=== PATIENT | male | born 1945 | race Caucasian/White ===

== ENCOUNTER 2016-11-19 12:24 | Emergency (ER) | payer OTHER ==
[~2016-11-19] VITALS: Ht 177.8 cm; Wt 86.2 kg
[2016-11-19 13:38] LABS: Basophils # (auto) 0 uL; Basophils % (auto) 0.3 % (0.0-2.0); CONDITION Y; Eosinophils # (auto) 0.1 uL; Eosinophils % (auto) 1.1 % (0.0-7.0); Hemoglobin 15.6 g/dL (13.5-17.5); Lymphocytes # (auto) 0.9 uL; Lymphocytes % (auto) 7.8 % (10.0-50.0); Mean Corpuscular Hemoglobin 28.9 pg (28.0-32.0); Mean Corpuscular Hgb Conc. 33.8 g/dL (32.0-36.0); Mean Corpuscular Volume 85.3 fL (80.0-100.0); Mean Platelet Volume 8.3 fL (6.9-10.8); Monocytes # (auto) 0.6 uL; Monocytes % (auto) 5.5 % (0.0-12.0); Neutrophils # (auto) 10.1 uL; Neutrophils % (auto) 85.3 % (37.0-80.0); Platelet Count (auto) 291 10^3/uL (140-450); Red Cell Distribution Width 14.8 % (11.8-14.3); White Blood Cell 11.8 10^3/uL (4.4-10.8)
[2016-11-19] MEDS ORDERED: HYDROcodone-ACET 10/325MG TAB PO ONE (14:15)
[2016-11-19 14:18] LABS: Alkaline Phosphatase 80 U/L (45-117); Anion Gap 10 (5-15); Aspartate Aminotransferase 29 U/L (15-37); BUN/Creatinine Ratio 14.9; Bilirubin, Total 0.3 mg/dL (0.2-1.0); Blood Urea Nitrogen 18 mg/dL (7-18); Calcium 9.1 mg/dL (8.5-10.1); Carbon Dioxide 24 mmol/L (21-32); Chloride 104 mmol/L (98-107); GFR African American 76 mL/min; GFR Non-African American 63 mL/min; Glucose 120 mg/dL (74-106); Potassium 3.5 mmol/L (3.5-5.1); Sodium 138 mmol/L (136-145)
[2016-11-19] MEDS ORDERED: TETANUS-DIPTH-ACEL PERTUSSIS 0.5ML SYRG IM ONE (17:00)
[2016-11-20] MEDS ORDERED: ONDANSETRON HCL 4 MG/2 ML VIAL IV ONE (00:15)
[2016-11-20] MEDS ORDERED: HYDROmorphone HCL 2 MG/ML VL IV ONE (00:15)
[2016-11-20 03:52] VITALS: BP 181/88
== END 2016-11-20 04:35 | disposition short-term general hospital (02) ==
LOC: EDBD 12:24 → ER 12:35
DX: S22.20XA Unspecified fracture of sternum, initial encounter for closed fracture (principal); S60.221A Contusion of right hand, initial encounter; S13.9XXA Sprain of joints and ligaments of unspecified parts of neck, initial encounter; S22.43XA Multiple fractures of ribs, bilateral, initial encounter for closed fracture; I10 Essential (primary) hypertension; M19.90 Unspecified osteoarthritis, unspecified site; V49.49XA Driver injured in collision with other motor vehicles in traffic accident, initial encounter; Y93.89 Activity, other specified; Y99.8 Other external cause status; Y92.410 Unspecified street and highway as the place of occurrence of the external cause
CPT/HCPCS: 36415; 71020; 71250; 72040; 72125; 73110; 80053; 84484; 85025; 90471; 90715; 93005; 96374; 96375; 99291; J1170; J2405

== ENCOUNTER → 2020-07-17 | Outpatient (CLI) | payer MEDICARE, OTHER | END | disposition home or self-care (01) | LOC: Rad HDHVI 08:00 | PROVIDERS: ATTEND Internal Medicine Cardiovascular Disease | DX: I65.21 Occlusion and stenosis of right carotid artery (principal); R07.89 Other chest pain | CPT/HCPCS: 93880 ==

== ENCOUNTER → 2020-07-21 | Outpatient (CLI) | payer MEDICARE, OTHER | END | disposition home or self-care (01) | LOC: Rad HDHVI 07:57 | PROVIDERS: ATTEND Internal Medicine Cardiovascular Disease | DX: R07.89 Other chest pain (principal) | CPT/HCPCS: 93306 ==

== ENCOUNTER → 2020-08-04 | Outpatient (CLI) | payer MEDICARE, OTHER ==
[~2020-08-04] VITALS: Ht 177.8 cm; Wt 93.0 kg
== END | disposition home or self-care (01) ==
LOC: Rad HDHVI 08:56
PROVIDERS: ATTEND Internal Medicine Cardiovascular Disease
DX: I10 Essential (primary) hypertension (principal); E78.5 Hyperlipidemia, unspecified; R06.02 Shortness of breath; R07.89 Other chest pain; Z82.49 Family history of ischemic heart disease and other diseases of the circulatory system
CPT/HCPCS: 78452; 93017; 96374; A9500

== ENCOUNTER → 2022-01-12 | Outpatient (CLI) | payer MEDICARE, OTHER | END | disposition home or self-care (01) | LOC: Rad HDHVI 08:03 | PROVIDERS: ATTEND Internal Medicine Cardiovascular Disease | DX: I65.23 Occlusion and stenosis of bilateral carotid arteries (principal); I10 Essential (primary) hypertension; E78.5 Hyperlipidemia, unspecified | CPT/HCPCS: 93880 ==

== ENCOUNTER → 2022-01-18 | Outpatient (CLI) | payer MEDICARE, OTHER | END | disposition home or self-care (01) | LOC: Rad HDHVI 08:05 | PROVIDERS: ATTEND Internal Medicine Cardiovascular Disease | DX: I08.1 Rheumatic disorders of both mitral and tricuspid valves (principal); I10 Essential (primary) hypertension; R06.02 Shortness of breath | CPT/HCPCS: 93306 ==

== ENCOUNTER → 2022-07-04 | Outpatient (CLI) | payer MEDICARE, OTHER ==
[~2022-07-04] VITALS: Ht 185.4 cm; Wt 98.4 kg
[~2022-07-04] MED LIST: ADENOSINE 83 MG in GIVE UN-DILUTED 0 ML IV ONE
== END | disposition home or self-care (01) ==
LOC: Rad HDHVI 09:04
PROVIDERS: ATTEND Internal Medicine Cardiovascular Disease
DX: R07.9 Chest pain, unspecified (principal); I10 Essential (primary) hypertension; E78.5 Hyperlipidemia, unspecified; Z82.49 Family history of ischemic heart disease and other diseases of the circulatory system; Z79.82 Long term (current) use of aspirin; Z79.899 Other long term (current) drug therapy
CPT/HCPCS: 78452; 93017; 96374; A9500; J0153

== ENCOUNTER → 2023-08-28 | Outpatient (CLI) | payer MEDICARE, OTHER | END | disposition home or self-care (01) | LOC: Rad HDHVI 08:02 | PROVIDERS: ATTEND Internal Medicine Cardiovascular Disease | DX: I65.22 Occlusion and stenosis of left carotid artery (principal); I10 Essential (primary) hypertension; R07.89 Other chest pain | CPT/HCPCS: 93880 ==

== ENCOUNTER → 2024-02-14 | Outpatient (CLI) | payer MEDICARE, OTHER ==
[~2024-02-14] MED LIST changes: -ADENOSINE 83 MG in GIVE UN-DILUTED 0 ML IV ONE; +ASPI-543 PO; +CHOL50007 PO; +HYDR25TA5 PO; +IOHEXOL 350 MG/ML 100ML IJ ONE; +METF-370 PO; +MULT-1018 PO; +OLME5TAB24 PO
[2024-02-14 09:45] VITALS: BP 143/67; PULSE 83; RESP 16; O2SAT 96
[2024-02-14 09:56] VITALS: BP 147/70; PULSE 86; RESP 17; O2SAT 94
--- NOTE | 2024-02-14 11:31 | DVH ---
XY CHEST TWO VIEWS ROUTINE CLINICAL HISTORY: PRE OP, pain COMPARISON: None TECHNIQUE: Frontal and lateral view of the chest was obtained FINDINGS: Lines and Tubes: None Lungs: No focal consolidation. Pleura: No effusion. No pneumothorax. Cardiomediastinal contours: Unremarkable Bones: No acute osseous abnormality. IMPRESSION: No acute cardiopulmonary disease.
== END | disposition home or self-care (01) ==
LOC: Rad HDHVI 09:35
PROVIDERS: ATTEND Internal Medicine Cardiovascular Disease
DX: Z01.818 Encounter for other preprocedural examination (principal); R07.9 Chest pain, unspecified
CPT/HCPCS: 71046; 93005; G0463

== ENCOUNTER 2024-02-15 07:31 | Day surgery (SDC) | payer MEDICARE, OTHER ==
[2024-02-14 12:03] LABS: Basophils # (auto) 0 10 ^3/uL (0-0.2); Basophils % (auto) 0.3 % (0.0-2.0); Eosinophils # (auto) 0.3 10 ^3/uL (0-0.8); Eosinophils % (auto) 2.7 % (0.0-7.0); Hemoglobin 15.3 g/dL (13.5-17.5); Lymphocytes # (auto) 1.4 10 ^3/uL (0.4-5.4); Lymphocytes % (auto) 13.6 % (10.0-50.0); Mean Corpuscular Hemoglobin 29.4 pg (28.0-32.0); Mean Corpuscular Hgb Conc. 33.9 g/dL (32.0-36.0); Mean Corpuscular Volume 86.7 fL (80.0-100.0); Monocytes % (auto) 9.3 % (0.0-12.0); Neutrophils # (auto) 7.5 10 ^3/uL (1.6-8.6); Neutrophils % (auto) 74.1 % (37.0-80.0); Platelet Count (auto) 278 10^3/uL (140-450); Red Cell Distribution Width 14.8 % (11.8-14.3); White Blood Cell 10.2 10^3/uL (4.4-10.8)
[2024-02-14 12:20] LABS: INR 0.97 (0.9-1.15); Partial Thromboplastin Time 26.5 SEC (24.5-34.5); Prothrombin Time 10.3 sec (9.3-11.8)
[2024-02-14 12:58] LABS: Anion Gap 7 (5-15); Carbon Dioxide 28 mmol/L (20-31); Chloride 106 mmol/L (98-107); Potassium 4.7 mmol/L (3.5-5.1); Sodium 141 mmol/L (136-145)
[2024-02-14 13:04] LABS: BUN/Creatinine Ratio 18.1 (10.0-20.0); Glucose 89 mg/dL (74-106)
[2024-02-14 13:05] LABS: Blood Urea Nitrogen 26 mg/dL (9-23); Calcium 10.8 mg/dL (8.7-10.4)
[2024-02-15] VITALS (7 sets, daily range): BP systolic 117–146; BP diastolic 67–79; PULSE 73–85; RESP 12–20; O2SAT 90–95
[~2024-02-15] VITALS: Ht 175.3 cm; Wt 93.9 kg
[~2024-02-15 07:31] MED LIST changes: -IOHEXOL 350 MG/ML 100ML IJ ONE
[2024-02-15] MEDS ORDERED: SODIUM CHL 0.9% 0 ML ONE (11:41)
[2024-02-15] MEDS ORDERED: fentaNYL CITRATE 100 MCG/2 ML VL ONE (11:41)
[2024-02-15] MEDS ORDERED: VERAPAMIL 2.5MG/ML INJ 2ML VIAL IV ONE (11:41)
[2024-02-15] MEDS ORDERED: ANGIOMAX 250 MG VIAL IV ONE (11:41)
[2024-02-15] MEDS ORDERED: HEPARIN SODIUM (PORCINE) 5000 UNITS/ML 1ML VIAL ONE (11:41)
[2024-02-15] MEDS ORDERED: MIDAZOLAM HCL 2MG/2ML 2ml VIAL (1mg/ml) ONE (11:41)
[2024-02-15] MEDS ORDERED: LIDOCAINE 2%HCL (LOCAL ANESTH.) INJ 20ML MDV ONE (11:41)
--- NOTE | 2024-02-15 12:27 | DVHDS ---
DATE OF DISCHARGE: 02/15/2024 DISCHARGE DIAGNOSES: The patient with chest pain, abnormal stress test, underwent coronary angiogram. Angiogram shows no flow restrictive lesion. Normal coronary anatomy and normal left ventricular ejection fraction. At this time, no further workup is required. Stable at the time of discharge. DISPOSITION: Home. ACTIVITY: As instructed. DIET: Will be 2 gram sodium diet. Asim Ford MD SA/TAWNY TID: [id number] RECEIPT: [id number]
--- NOTE | 2024-02-15 12:28 | DVHOP ---
DATE OF SURGERY: 02/15/2024 PROCEDURES PERFORMED: Selective left and right coronary angiography, ventriculogram. Conscious sedation via the right radial approach. DESCRIPTION OF PROCEDURE: The patient was prepped and draped in a sterile condition. 1% Xylocaine was used to anesthetize the right radial artery. Using a micropuncture needle, right radial artery was cannulated, we advanced via Seldinger technique, a 6-Libyan sheath into the right radial artery. A radial artery cocktail was given including 2000 heparin, 25 mcg of verapamil and 100 mcg of nitroglycerin was injected. Then, using a Olympia diagnostic catheter, 5-Libyan we were able to selectively do the right and left coronary angiography. Following that, using 6-Libyan pigtail catheter, ventriculogram was done. There were no complications. The patient tolerated the procedure well. RESULTS: * Left main normal. * Left anterior descending artery was normal. * Circumflex was normal. * Right coronary artery was normal. * Left ventricular function was preserved and estimated at 60% with an LVEDP of 13 mmHg with no gradient across the aortic valve. Thus, the patient with normal coronary anatomy, normal left ventricular ejection fraction with no gradient across the aortic valve. The LVEDP of 12-13 mmHg. At this time, no catheter-based or surgical intervention is warranted. We will continue to follow the patient. Asim Ford MD SA/CLARISSE TID: [id number] RECEIPT: [id number]
--- NOTE | 2024-02-15 12:33 | DVHHP ---
ADMIT DATE: 02/15/2024 HISTORY OF PRESENT ILLNESS: A 78-year-old with history of chest pain, history of hypertension, strong family history of coronary artery disease, mother of complication from coronary artery disease, history of tobacco use, but discontinued smoking some 40 years ago. History of borderline diabetes. CURRENT MEDICATIONS: Include Benicar, metformin and hydrochlorothiazide and aspirin therapy. He is not having some chest pain and shortness of breath, abnormal stress test and echocardiogram shows preserved left ventricular ejection fraction. Because of the above presentation, it is felt that the patient should undergo coronary angiography. REVIEW OF SYSTEMS: Negative. No history of melena, hematochezia, hematemesis, hemoptysis. No history of seizure disorder. No history of CVA. No history of any lung disease such as COPD. Asthma. No history of pneumonia. No history of any GI symptomatology such as diverticulitis. No liver disease. No gastric ulceration. No history of any benign prostatic hypertrophy of prostate issues. No history of urinary problems. No rheumatologic disorders as well. PHYSICAL EXAMINATION: VITAL SIGNS: Blood pressure is 138/74, pulse of 70, O2 saturation 98%. HEENT: Pupils are reactive. Funduscopic exam shows no AV nicking. Sclerae anicteric. Oral mucosa moist. Posterior pharynx without any exudates. NECK: Supple. Carotid pulses are 2+ symmetrical. No JVD appreciated. No cervical adenopathy, no supraclavicular adenopathy. PULMONARY: Clear to auscultation. CARDIOVASCULAR: Regular rate. ABDOMEN: Obese. Unable to appreciate an organomegaly. No epigastric tenderness, no suprapubic tenderness, no CVA tenderness. NEUROLOGIC: The patient is intact at this time. The patient at this time has no peripheral vascular disease as well. ASSESSMENT AND PLAN: Thus, the patient's chest pain, abnormal stress test, now to undergo left heart catheterization. Further recommendations after the angiogram. Asim Ford MD SA/CLARISSE TID: [id number] RECEIPT: [id number]
== END 2024-02-15 14:30 | disposition home or self-care (01) ==
LOC: CATH 07:31
PROVIDERS: ATTEND Internal Medicine Cardiovascular Disease
DX: R07.89 Other chest pain (principal); I10 Essential (primary) hypertension; R94.39 Abnormal result of other cardiovascular function study; R06.09 Other forms of dyspnea; R73.03 Prediabetes; Z82.49 Family history of ischemic heart disease and other diseases of the circulatory system; Z79.899 Other long term (current) drug therapy; Z98.890 Other specified postprocedural states
CPT/HCPCS: 36415; 80048; 85025; 85610; 85730; 93458; C1769; C1894; J1644; J2250; J3010; 99152

== ENCOUNTER → 2024-07-22 | Outpatient (CLI) | payer MEDICARE, OTHER | END | disposition home or self-care (01) | LOC: Rad HDHVI 08:07 | PROVIDERS: ATTEND Internal Medicine Cardiovascular Disease | DX: I77.819 Aortic ectasia, unspecified site (principal); I11.0 Hypertensive heart disease with heart failure; I50.43 Acute on chronic combined systolic (congestive) and diastolic (congestive) heart failure | CPT/HCPCS: 93306 ==

== ENCOUNTER → 2024-09-04 | Outpatient (CLI) | payer MEDICARE, OTHER | END | disposition home or self-care (01) | LOC: Rad HDHVI 08:03 | PROVIDERS: ATTEND Internal Medicine Cardiovascular Disease | DX: I11.0 Hypertensive heart disease with heart failure (principal); I50.43 Acute on chronic combined systolic (congestive) and diastolic (congestive) heart failure | CPT/HCPCS: 93880 ==

== ENCOUNTER 2024-09-30 08:05 | Outpatient (CLI) | payer MEDICARE, OTHER ==
[~2024-09-30] VITALS: Ht 175.3 cm; Wt 90.7 kg
--- NOTE | 2024-10-11 14:34 | DVHSR ---
APPROVED REPORT Exam: Nuclear Stress Test Indication: Screening for CAD Ht: 5 ft 9 in Wt: 200 lbs BSA: 2.07 m2 HR: 71 bpm BP: 120/70 mmHg BMI: 29.53 Rhythm: NSR, PVCs Medical History Medical History: HTN, Mixed Hyperlipidemia, Diabetes, CHF Medications: Hctz, Aspirin, Saw [place], Benicar, Multivitamin, Vit D3, Metformin Allergies: No known drug allergies Cardiac Risk Factors: Family Hx of CAD Stress Test Details Stress Test: Exercise stress testing was performed using a Dax protocol. HR Resting HR: 71 bpmMax Heart Rate (APMHR): 142.957580 bpm Max HR Achieved: 139 bpmTarget HR (85% APMHR): 120.920953 bpm % of APMHR: 97.89 Recovery HR: 76 bpm HR response to stress: Normal HR response to stress BP Resting BP: 120/70 mmHg Max BP: 202/69 mmHg Recovery BP: 141/59 mmHg BP response to stress: Exaggerated response ECG Resting ECG: Sinus Rhythm Stress ECG: Sinus Tachycardia Arrhythmia: PVCs, PACs Recovery ECG: Sinus Rhythm Clinical Reason for Termination: Target HR achieved Stress Symptoms: Dyspnea Exercise duration: 3 min sec Exercise capacity: 4.6 METs Dyspnea that subsided during recovery. Stress ECG Conclusion NON ISCHEMIC CLINICAL RESPONSE NON ISCHEMIC CLINICAL RESPONSE EF >55% NON ISCHEMIC CARDIOLITE STRESS IMAGING LESS THAN 10% LIKELIHOOD FOR STRESS INDUCED ISCHEMIC NM EXAM: Myocardial Perfusion REST/STRESS Imaging Protocol: Rest Tc-99m/Stress Tc-99m 1 day Resting Data Rest SPECT myocardial perfusion imaging was performed in supine position 30 minutes following the int ravenous injection of 10.76 mCi of Tc-99m Sestamibi. Time of rest injection: 809 Date: 09/30/2024 Time of rest imagin Date: 09/30/2024 Administration Route: IV Administration Site: Left AC Exercise Stress At peak stress, the patient was injected intravenously with 32.4 mCi of Tc-99m Sestamibi. Time of stress injection: 904 Date: 09/30/2024 Time of stress imagin Date: 09/30/2024 Administration Route: IV Administration Site: Left AC Heart Rate at time of stress injection: 137 bpm. Patient continued to exercise for 1 minute(s). Gated Stress SPECT was performed 15 minutes after stress injection. The images were gated to evaluate regional wall motion and calculate left ventricular ejection fracti on. Comments Cardiolite injection at 1 minute, 32 seconds into test. Nuclear Conclusion NON ISCHEMIC CLINICAL RESPONSE NON ISCHEMIC CLINICAL RESPONSE EF >55% NON ISCHEMIC CARDIOLITE STRESS IMAGING LESS THAN 10% LIKELIHOOD FOR STRESS INDUCED ISCHEMIC
== END 2024-09-30 17:00 | disposition home or self-care (01) ==
LOC: Rad HDHVI 08:05
PROVIDERS: ATTEND Internal Medicine Cardiovascular Disease
DX: I49.3 Ventricular premature depolarization (principal); I49.1 Atrial premature depolarization; R00.0 Tachycardia, unspecified; I11.0 Hypertensive heart disease with heart failure; I50.43 Acute on chronic combined systolic (congestive) and diastolic (congestive) heart failure; E11.40 Type 2 diabetes mellitus with diabetic neuropathy, unspecified; R07.89 Other chest pain; E78.2 Mixed hyperlipidemia; I25.2 Old myocardial infarction; I20.0 Unstable angina
CPT/HCPCS: 78452; 93017; A9500; 96374